=== PATIENT | male | born 1940 | race Caucasian/White ===

== ENCOUNTER 2016-11-07 17:37 | Emergency (ER) | payer BC ==
[2016-11-07 18:02] LABS: BASOPHILS 0.7 % (0.0-2.0); EOSINOPHILS 1.5 % (0.0-6.0); EOSINOPHILS# 0.1 X 10^3uL (0.0-0.4); HEMATOCRIT 43.5 % (42.0-54.0); HEMOGLOBIN 14.4 g/dL (14.0-18.0); LYMPHOCYTES 30.6 % (20.0-40.0); LYMPHOCYTES# 1.9 X 10^3uL (0.8-3.8); MEAN CELL VOLUME 87.1 fL (80.0-100.0); MEAN CORPUSCULAR HEMOGLOBIN 28.7 pg (29.0-35.0); MEAN PLATELET VOLUME 7.6 fL (7.4-10.4); MONOCYTES 9.9 % (2.0-10.0); MONOCYTES# 0.6 X 10^3uL (0.2-1.0); NEUTROPHILS 57.3 % (54.0-75.0); NEUTROPHILS# 3.7 X 10^3uL (2.6-6.7); PLATELET COUNT 253 X 10^3uL (130-440); RED CELL DISTRIBUTION WIDTH 13.5 % (11.5-14.5); WHITE BLOOD COUNT 6.3 X 10^3uL (3.9-10.7)
[2016-11-07] MEDS ORDERED: ONDANSETRON HCL 4 MG/2 ML VIAL ONE ×2 (18:06→18:51)
[2016-11-07 18:10] LABS: BLOOD UREA NITROGEN 27 mg/dL (9-20); CALCIUM 9.3 mg/dL (8.4-10.2); CHLORIDE 104 mmol/L (98-107); EST GLOMERULAR FILTRATION RATE > 60 mL/min; GLUCOSE 122 mg/dL (70-100); MAGNESIUM 2.3 mg/dL (1.6-2.3); POTASSIUM 3.8 mmol/L (3.5-5.1); SODIUM 142 mmol/L (137-145)
[2016-11-07 18:22] LABS: TROPONIN I < 0.012 ng/mL (0.00-0.034)
--- NOTE | 2016-11-07 18:33 | RADIOLOGY REPORT ---
COMPARISON: November 06, 2010 FINDINGS: 1 view of the chest obtained. Minimal atelectasis in the left lung base. There is no pleural effusi on. There is no pneumothorax. The cardiomediastinal silhouette is normal. There is no abnormality of the pulmonary vessels. There is no focal lung parenchymal nodule. There is no bone lesion. IMPRESSION: Minimal left basilar atelectasis. Final Electronic Signature: This report was electronically signed by Nagi Salcedo MD on 11/07/2016 6:31 PM. nereida /
[2016-11-07] MEDS ORDERED: METOCLOPRAMIDE HCL 10 MG/2 ML VIAL ONE (19:19)
[2016-11-07] MEDS ORDERED: MECLIZINE HCL 12.5 MG TABLET PO ONE ×2 (20:17→21:35)
[2016-11-07] MEDS ORDERED: ONDANSETRON ODT PREPAC 4 MG TAB.RAPDIS PO ONE (21:35)
--- NOTE | 2016-11-07 21:57 | ER NURSING DOCUMENTATION ---
Nurse's Notes [facility] Name:Caden Elizabeth III Age:75 yrs Sex:Male :1940 Arrival Date:11/07/2016 Time:17:37 Bed4 Private MD: Diagnosis:Nausea - Vomiting (not );Benign Positional Vertigo Presentation: 11/07 17:40 Presenting complaint: Patient states: pt has had an hour of feeling light headed, SOB st abd nauseated. pt vomited upon arrival. pt denies any pain however he is diaforetic. Transition of care: Home. 17:40 Method Of Arrival: Private Vehicle st 17:49 Acuity: ROC 2 st Triage Assessment: 17:40 General: Appears ill, uncomfortable, Behavior is cooperative. Pain: Denies pain. Neuro: st No deficits noted. Cardiovascular: Capillary refill < 3 seconds Heart tones present Pulses are all present. Reports Diaphoresis lightheadedness, Nausea shortness of breath Rhythm is sinus rhythm. Respiratory: Airway is patent Respiratory effort is even, unlabored, Respiratory pattern is regular, symmetrical, Breath sounds are clear bilaterally. GI: Abdomen is flat, non- distended Abd is soft and non tender X 4 quads. Reports nausea, vomiting. Derm: Skin is pale. Historical: - Allergies: No known drug Allergies; - Home Meds: 1. Flonase Nasal 2. [place] Oral 3. atorvastatin oral 4. finasteride oral 5. Levothroid Oral - PMHx: HYPOTHYROIDISM; - Tetanus: < 10 years. - Ebola Screening: : Patient denies exposure to infectious person. Patient denies travel to an Ebola-affected area in the 21 days before illness onset. . - Immunization history: Pneumococcal vaccine status is unknown. - Social history: Smoking status: Patient states was never smoker of tobacco. Patient uses alcohol Patient/guardian denies using marijuana. Screenin:34 Infectious Disease Risk None. Abuse screen: Denies threats or abuse. Denies injuries st from another. pt feels safe at home. Nutritional screening: No deficits noted. Vital Signs: 17:43 BP 135 / 66; Pulse 61; Resp 16; Temp 97.6(O); Pulse Ox 98% on R/A; Weight 77.11 kg (R); arc Height 5 ft. 8 in. (172.72 cm) (R); Pain 0/10; 17:56 BP 136 / 67 (auto/); st 18:00 Pulse 59 MON; Resp 19; Pulse Ox 92% ; st 18:00 BP 135 / 61 (auto/); st 18:05 Pulse 51 MON; Resp 20; Pulse Ox 93% ; st 21:39 BP 143 / 63; Pulse 73; Resp 15; Temp 97.4; Pulse Ox 93% on R/A; Pain 0/10; mk4 17:43 Body Mass Index 25.85 (77.11 kg, 172.72 cm) arc ED Course: 17:38 Patient arrived in ED. arc 17:40 Valuables Remains with patient Patient has correct armband on for positive st identification. Placed in gown. Bed in low position. Call light in reach. Side rails up X2. quality assurance monitor final on. Pulse ox on. Cardiac Monitoring On for Nurse Monitoring only. Pulse Ox - RN Monitoring Only NIBP On - RN Monitoring Only. 17:45 Seth Dorman MD is Attending Physician. tl1 17:45 EKG done per protocol. Performed by ED Staff. Shown to ED physician. st 17:49 Vilma Atkins, RN is Primary Nurse. st 17:[address] 18:01 Inserted peripheral IV: 20 gauge in right antecubital area and blood collected. sc1 18:04 Port Xray Completed. pm1 18:45 Bijan Salinas MD is Referral Physician. tl1 18:51 Oxygen Oxygen administration via nasal cannula @ 2L/min. em3 21:15 Referral Physician role handed off by Bijan Salinas MD jm 21:15 Dane Bran MD is Referral Physician. 21:24 Discontinued IV intact, bleeding controlled, pressure dressing applied, No sc1 redness/swelling at site. Administered Medications: Completed: NS 0.9% 1000 ml IV at bolus once 17:50 Drug: NS 0.9% 1000 ml; Route: IV; Rate: bolus; Site: right antecubital; st 18:46 Follow up: IV Status: Completed infusion; IV Intake: 1000ml st 17:50 Drug: Zofran 4 mg; Route: IVP; Infused Over: 2 mins; Site: right antecubital; st 18:46 Follow up: Response: Nausea unchanged st 18:46 Drug: Zofran 4 mg; Route: IVP; Infused Over: 2 mins; Site: right antecubital; st 21:53 Follow up: Response: No adverse reaction; Nausea unchanged mk4 19:26 Drug: NS 0.9% 1000 ml; Route: IV; Rate: bolus; Site: right antecubital; Delivery: Pump; sc1 21:53 Follow up: IV Status: Completed infusion; IV Intake: 1000ml mk4 19:26 Drug: Reglan 5 mg; Route: IVP; Site: right antecubital; ks1 21:54 Follow up: Response: No adverse reaction; Nausea is decreased mk4 20:00 Drug: Meclizine 25 mg; Route: PO; mk4 21:55 Follow up: Response: Pharmacy closed - take home med pack mk4 20:09 Drug: Meclizine 25 mg; Route: PO; mk4 21:54 Follow up: Response: No adverse reaction; Marked relief of symptoms mk4 21:54 Drug: Zofran 1 tablet; Route: PO; mk4 21:55 Follow up: Response: Pharmacy closed - take home med pack 4 Intake: 18:46 IV: 1000ml; Total: 1000ml. st 21:53 IV: 1000ml; Total: 2000ml. 4 Outcome: 18:45 Discharge ordered by . tl1 21:39 Discharged to home ambulatory. mk4 21:39 Condition: good 21:39 Discharge Assessment: Patient awake, alert and oriented x 3. No cognitive and/or functional deficits noted. Patient verbalized understanding of disposition instructions. Patient awake and alert. Oriented to person, place and time. Patient Patient has no functional deficits. 21:39 Discharge instructions given to patient, Instructed on discharge instructions, follow up and referral plans. medication usage, Demonstrated understanding of instructions, Prescriptions given X 2. 21:56 Patient left the ED. 4 11/08 13:25 Discharge F/U Call: Spoke with: patient. Have you filled your prescriptions? yes. lc Have you made a f/u appointment? yes Overall Care on a scale of 1-10 with 10 being the best care, you rate our care as: Other comments: FEELING MUCH BETTER Signatures: Vilma Atkins RN RN Tanisha Roy RN RN lc Campbell, Sandy, RN RN ks1 Sharad Mi MD MD jm McBride, Philisha 1 Mauro Ellis Melody mk4 Seth Dorman MD MD tl1 Genevieve Howard, Reg Reg arc
--- NOTE | 2016-11-07 21:57 | ER PHYSICIAN DOCUMENTATION ---
Physician Documentation [facility] Name:Caden Elizabeth III Age:75 yrs Sex:Male :1940 Arrival Date:11/07/2016 Time:17:37 Bed4 Private MD: Seth Dougherty Disposition: 11/08 19:50 F/U Call Note: this was done earlier today by Tanisha Roy RN who reported that he tl1 was feeling much improved today. Disposition: 11/07/16 18:45 Discharged to Home/Self Care. Impression: Nausea - Vomiting (not ), Benign Positional Vertigo. - Condition is Good. - Discharge Instructions: BENIGN POSITIONAL VERTIGO. - Prescriptions for Meclizine 25 mg Oral Tablet - take 1 tablet by ORAL route every 8 hours As needed; 30 tablet. Zofran 4 mg Oral Tablet - take 1-2 tablet by ORAL route every 4-6 hours As needed; 10 tablet. - Medical Reconciliation form form. - Follow up: Bijan Salinas MD; When: 2 - 3 days; Reason: Recheck today's complaints, Continuance of care. Follow up: Dane Bran MD; When: Call early Wednesday morning for an appointment. He said he could sqeeze you in. ; Reason: Continuance of care. - Problem is new. - Symptoms have improved. HPI: 11/07 17:45 This 75 yrs old Male presents to ER with complaints of Dizziness AND VOMITING.tl1 19:41 The patient presents with lightheadedness. he was well until this morning at about 10 tl1 am, when he noted some nausea and vague lightheadedness. He went down to [facility] with his and felt hungry. He ate a little and the nausea worsened. Over the course of the afternoon these symptoms have worsened, and when he arrived here at about 1730, he was pale, nauseated, diaphoretic and felt globally weak and fatigued. He vomited once shortly after arrival here. He denied h/a, vertigo, tinnitus, hearing change, visual problems, speech problems, gait disturbance. No ST, cough, rhinorrhea. No CP, palpitations, dyspnea, hemoptysis. No abdominal pain, melena, hematochezia or hematemesis. No UTI SX. + H/O PUD 50 yrs ago.. Historical: - Allergies: No known drug Allergies; - Home Meds: 1. Flonase Nasal 2. [place] Oral 3. atorvastatin oral 4. finasteride oral 5. Levothroid Oral - PMHx: HYPOTHYROIDISM; - Tetanus: < 10 years. - Ebola Screening: : Patient denies exposure to infectious person. Patient denies travel to an Ebola-affected area in the 21 days before illness onset. . - Immunization history: Pneumococcal vaccine status is unknown. - Social history: Smoking status: Patient states was never smoker of tobacco. Patient uses alcohol Patient/guardian denies using marijuana. ROS: 19:46 Abdomen/GI: Positive for nausea, vomiting, Negative for abdominal pain, diarrhea, tl1 constipation, abdominal cramps, hematemesis, black/tarry stool, rectal bleeding. 19:46 Neuro: Negative for altered mental status, gait disturbance, headache, loss of consciousness, speech changes, tinnitus, visual changes. 19:46 All other systems are negative. Exam: 19:46 Head/Face: Normocephalic, atraumatic. tl1 Eyes: Pupils equal round and reactive to light, extra-ocular motions intact. Lids and lashes normal. Conjunctiva and sclera are non-icteric and not injected. Cornea within normal limits. Periorbital areas with no swelling, redness, or edema. 19:46 Neck: Trachea midline, no thyromegaly or masses palpated, and no cervical tl1 lymphadenopathy. Supple, full range of motion without nuchal rigidity, or vertebral point tenderness. No Meningismus. 19:46 Constitutional: The patient appears alert, awake, comfortable, well developed, well groomed, well nourished, diaphoretic, in obvious distress, mildly distressed, uncomfortable. 19:46 Cardiovascular: Rate: normal, Rhythm: regular, Heart sounds: normal, Edema: is not appreciated, JVD: is not appreciated. 19:46 Respiratory: Respirations: normal, Breath sounds: are normal, no rales, rhonchi, no stridor, no wheezing, no acute changes. 19:46 Abdomen/GI: Bowel sounds: active, Palpation: abdomen is soft and non-tender. 19:46 Musculoskeletal/extremity: Exam is negative for acute changes. 19:46 Skin: Exam negative for acute changes. 19:46 Neuro: Orientation: is normal, Mentation: is normal, Memory: is normal, Cranial nerves: grossly normal, Motor: moves all fours, Gait: not tested. 19:46 Neuro: Cerebellar function: normal finger to nose testing. tl1 Vital Signs: 17:43 BP 135 / 66; Pulse 61; Resp 16; Temp 97.6(O); Pulse Ox 98% on R/A; Weight 77.11 kg (R); arc Height 5 ft. 8 in. (172.72 cm) (R); Pain 0/10; 17:56 BP 136 / 67 (auto/); st 18:00 Pulse 59 MON; Resp 19; Pulse Ox 92% ; st 18:00 BP 135 / 61 (auto/); st 18:05 Pulse 51 MON; Resp 20; Pulse Ox 93% ; st 21:39 BP 143 / 63; Pulse 73; Resp 15; Temp 97.4; Pulse Ox 93% on R/A; Pain 0/10; mk4 17:43 Body Mass Index 25.85 (77.11 kg, 172.72 cm) arc MDM: 17:45 Patient medically screened. tl1 19:48 Differential diagnosis: CVA, generalized weakness, GI bleed, hypovolemia, idiopathic tl1 dizziness, sepsis, TIA, vertigo, PUD, gastritis.. Data reviewed: vital signs, nurses notes, lab test result(s), CBC, electrolytes, hepatic panel, urinalysis, EKG, radiologic studies, plain films, and as a result, I will continue to observe the patient. Counseling: I had a detailed discussion with the patient and/or guardian regarding: the historical points, exam findings, and any diagnostic results supporting the discharge/admit diagnosis, lab results, radiology results. Response to treatment: the patient's symptoms have mildly improved after treatment. 19:49 ED course: At change of shift, at 1900, he continued to feel poorly and was not ready tl to go home. I turned his care over to Dr Sharad Mi, who will continue his evaluation and treatment.. 20:54 ECG:. tl1 21:43 ED course: Pt seen and evaled by me. Pt's sx all seem to be related to position jm changes. His nausea improved after reglan, but his dizziness was still present, so I gave meclizine which did improve his sx. Pt also received another 1LNS for a total of 2 for his stay. Ultimately, I feel this is vertigo, w/o any neuro complaints. Pt offered admission as he was here for 5 hours and I feared he would continue to feel terrible at home, but he states that he feels better. I spoke w Dr. Bran, who said he would be happy to squeeze him in clinic this week if he needs to be seen. F/u instructions given. DC home. . 11/07 18:11 Order name: BASIC METABOLIC PANEL; Complete Time: 18:32 EDMS 11/07 18:32 Interpretation: SODIUM 142; POTASSIUM 3.8; CHLORIDE 104; CARBON DIOXIDE 24; GLUCOSE tl1 122; BLOOD UREA NITROGEN 27; CREATININE 1.1; CALCIUM 9.3. 11/07 18:11 Order name: MAGNESIUM; Complete Time: 18:32 EDMS 11/07 18:32 Interpretation: MAGNESIUM 2.3. tl1 11/07 18:11 Order name: CBC AUTO DIF, MDIF/RMOR IF IND; Complete Time: 18:32 EDMS 11/07 18:32 Interpretation: WHITE BLOOD COUNT 6.3; HEMOGLOBIN 14.4; HEMATOCRIT 43.5; PLATELET COUNT tl1 253. 11/07 18:22 Order name: TROPONIN I; Complete Time: 18:32 EDMS 11/07 18:32 Interpretation: Normal: TROPONIN I < 0.012. tl1 11/07 18:35 Order name: CHEST; SINGLE VIEW [address]; Complete Time: 19:51 EDMS 11/08 19:50 Interpretation: NAD. Minimal left basilar atelectasis. See radiologist report. tl1 11/07 17:51 Order name: 12-lead EKG; Complete Time: 18:21 st 11/07 17:51 Order name: Iv Saline Lock; Complete Time: 18:21 st 11/07 17:51 Order name: Place Patient On Monitor; Complete Time: 18:21 st 11/07 17:51 Order name: Pulse Ox Continuous; Complete Time: 18:21 st EC:45 Rate is 67 beats/min. Rhythm is regular, Normal Sinus Rhythm. Left axis deviation tl1 noted. WI interval is normal at 160 msec. QRS interval is normal at 91 msec. QT interval is normal at 469 msec. No Q waves. T waves are Normal. No ST changes noted. Clinical impression: NSR, with probable LAE. LAD. Interpreted by me. Reviewed by me. Dispensed Medications: Completed: NS 0.9% 1000 ml IV at bolus once 17:50 Drug: NS 0.9% 1000 ml; Route: IV; Rate: bolus; Site: right antecubital; st 18:46 Follow up: IV Status: Completed infusion; IV Intake: 1000ml st 17:50 Drug: Zofran 4 mg; Route: IVP; Infused Over: 2 mins; Site: right antecubital; st 18:46 Follow up: Response: Nausea unchanged st 18:46 Drug: Zofran 4 mg; Route: IVP; Infused Over: 2 mins; Site: right antecubital; st 21:53 Follow up: Response: No adverse reaction; Nausea unchanged mk4 19:26 Drug: NS 0.9% 1000 ml; Route: IV; Rate: bolus; Site: right antecubital; Delivery: Pump; sc1 21:53 Follow up: IV Status: Completed infusion; IV Intake: 1000ml mk4 19:26 Drug: Reglan 5 mg; Route: IVP; Site: right antecubital; tn1 21:54 Follow up: Response: No adverse reaction; Nausea is decreased mk4 20:00 Drug: Meclizine 25 mg; Route: PO; mk4 21:55 Follow up: Response: Pharmacy closed - take home med pack mk4 20:09 Drug: Meclizine 25 mg; Route: PO; mk4 21:54 Follow up: Response: No adverse reaction; Marked relief of symptoms mk4 21:54 Drug: Zofran 1 tablet; Route: PO; mk4 21:55 Follow up: Response: Pharmacy closed - take home med pack mk4 Signatures: Vilma Atkins RN RN Davina Griffin RN RN sc1 Sharad Mi MD MD jm King, Melody 4 Seth Dorman MD MD 1
== END 2016-11-07 21:57 | disposition home or self-care (01) ==
LOC: ER 17:37
DX: H81.10 Benign paroxysmal vertigo, unspecified ear (principal); R11.2 Nausea with vomiting, unspecified; R61 Generalized hyperhidrosis; R53.1 Weakness; R53.83 Other fatigue; Z79.899 Other long term (current) drug therapy
CPT/HCPCS: 71010; 80048; 83735; 84484; 85025; 93005; 96361; 96374; 96375; 96376; 99285; J2405; J2765